=== PATIENT | female | born 1975 | race Caucasian/White ===

== ENCOUNTER 2018-08-19 12:52 | Emergency (ER) | payer MEDICAID, MEDICARE ==
[~2018-08-19] VITALS: Ht 162.6 cm; Wt 75.9 kg
[~2018-08-19 12:52] MED LIST: HYDR-3498 PO; NAPR-985 PO
[2018-08-19 12:55] VITALS: BP 128/70; PULSE 108; RESP 20; Ht 162.6 cm; Wt 75.9 kg
[2018-08-19] MEDS ORDERED: PSEU-79 PO (13:03)
[2018-08-19] MEDS ORDERED: NAPR-985 PO (13:03)
[2018-08-19] MEDS ORDERED: ACET500C5 PO (13:03)
[2018-08-19] MEDS ORDERED: MED4DP PO (13:03)
--- NOTE | 2018-08-19 13:14 | ERD ---
ER Documentation Chief Complaint Chief Complaint throat pain and cough started since Saturday HPI 43-year-old female presenting with sore throat and cough times 3 days. She states she has sore tonsils and she started sneezing with coughing. Hurts to swallow. She took ibuprofen 2 days ago but no medication today. Medical history is Pinet[place]'s disease. NKDA. Surgical history cholecystectomy and C- section with tubal ligation. Social history smokes occasionally. ROS All systems reviewed and are negative except as per history of present illness. Medications Home Meds Active Scripts Methylprednisolone* (Medrol* DOSE PACK) 4 Mg/Dose-Pack Tab.ds.pk, 4 MG PO . DIRECTED, #1 PACKET Prov:TRINIDAD LICEA PA-C 08/19/18 Acetaminophen* (Tylophen*) 500 Mg Capsule, 2 CAP PO Q8H PRN for PAIN AND OR ELEVATED TEMP, #20 CAP Prov:TRINIDAD LICEA PA-C 08/19/18 Naproxen* (Naprosyn*) 500 Mg Tablet, 500 MG PO BID PRN for PAIN AND/OR INFLAMMATION, #30 TAB Prov:TRINIDAD LICEA PA-C 08/19/18 Pseudoephedrine Hcl* (Suphedrin*) 30 Mg Tablet, 30 MG PO Q6 PRN for CONGESTION, #30 TAB Prov:TRINIDAD LICEA PA-C 08/19/18 Naproxen* (Naprosyn*) 500 Mg Tablet, 500 MG PO BID PRN for PAIN AND/OR INFLAMMATION, #20 TAB Prov:KAYLA HAMILTON DO 10/20/14 Hydrocodone Bit-Acetaminophen* ([place]*) 5-325 Mg Tab, 1 TAB PO Q6 PRN for PAIN, #20 TAB Prov:KAYLA HAMILTON DO 10/20/14 Reported Medications [None] No Conflict Check 07/27/14 Allergies Allergies: Coded Allergies: No Known Allergy (Unverified , 10/20/14) PMhx/Soc History of Surgery: Yes (CHOLECYSTECTOMY, TUBAL LIGATION) Anesthesia Reaction: No Hx Neurological Disorder: No Hx Respiratory Disorders: No Hx Cardiac Disorders: No Hx Psychiatric Problems: Yes (ANXIETY, DEPRESSION) Hx Miscellaneous Medical Probl: No (HUNT[place]S DISEASE) Hx Alcohol Use: Yes (ALCOHOL ABUSE) Hx Substance Use: No Hx Tobacco Use: No FmHx Family History: No diabetes, No coronary disease, No other Physical Exam Vitals Vital Signs Date Temp Pulse Resp B/P (MAP) Pulse Ox O2 O2 Flow FiO2 Time Delivery Rate 08/19/18 99.2 108 20 128/70 97 12:55 (89) Physical Exam GENERAL: The patient is well-appearing, well-nourished, in no acute distress HEENT: Atraumatic. Conjunctivae are pink. Pupils equal, round, and reactive to light. There is no scleral icterus. Tympanic membranes clear bilaterally. Oropharynx clear. NECK: C-spine is soft and supple. There is no meningismus. There is no cervical lymphadenopathy. CHEST: Clear to auscultation bilaterally. There are no rales, wheezes or rhonchi. HEART: Regular rate and rhythm. No murmurs, clicks, rubs or gallops. Procedures/MDM MDM: 43-year-old female presenting with sore throat. I have low suspicion for pneumonia. I have low suspicion for bacterial HEENT infection. I have low suspicion for meningitis or sepsis. I do not feel antibiotics are indicated patient is discharged with supportive medications. Patient is told symptoms change or worsen to return immediately to the ER. All questions answered at discharge Departure Diagnosis: Primary Impression: Sore throat Condition: Stable Patient Instructions: Self-Care for Sore Throats Referrals: [facility] YOU HAVE RECEIVED A MEDICAL SCREENING EXAM AND THE RESULTS INDICATE THAT YOU DO NOT HAVE A CONDITION THAT REQUIRES URGENT TREATMENT IN THE EMERGENCY DEPARTMENT. FURTHER EVALUATION AND TREATMENT OF YOUR CONDITION CAN WAIT UNTIL YOU ARE SEEN IN YOUR DOCTORS OFFICE WITHIN THE NEXT 1-2 DAYS. IT IS YOUR RESPONSIBILITY TO MAKE AN APPOINTMENT FOR FOLOW-UP CARE. IF YOU HAVE A PRIMARY DOCTOR --you should call your primary doctor and schedule an appointment IF YOU DO NOT HAVE A PRIMARY DOCTOR YOU CAN CALL OUR PHYSICIAN REFERRAL HOTLINE AT IF YOU CAN NOT AFFORD TO SEE A PHYSICIAN YOU CAN CHOSE FROM THE FOLLOWING [facility] CLINICS [facility] [address] [facility]. [facility] [address] [facility] [address] [facility] [address] [facility]. [facility] [address] [facility]. [facility] [address] Additional Instructions: FOLLOW UP WITH YOUR PRIMARY CARE PHYSICIAN TOMORROW.Return to this facility if you are not improving as expected. TRINIDAD LICEA PA-C Aug 19, 2018 13:14
== END 2018-08-19 15:38 | disposition home or self-care (01) ==
LOC: E/R 12:52
DX: J02.9 Acute pharyngitis, unspecified (principal)
CPT/HCPCS: 99283

== ENCOUNTER 2018-10-10 04:25 | Emergency (ER) | payer MEDICARE, OTHER ==
[~2018-10-10] VITALS: Ht 160 cm; Wt 73.0 kg
[~2018-10-10 04:25] MED LIST changes: +ACET500C5 PO; +MED4DP PO; +PSEU-79 PO
[2018-10-10 04:34] VITALS: Ht 160 cm; Wt 73.0 kg
[2018-10-10] MEDS ORDERED: LIDOCAINE 1%/EPI (1:100,000) (MDV) 20 ML INJ ONE (05:00)
[2018-10-10] MEDS ORDERED: LIDOCAINE 1%/EPI 30 ML INJ INJ ONE (05:00)
[2018-10-10] MEDS ORDERED: CEFAZOLIN 1 GM INJ IM ONE (05:00)
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
[2018-10-10] MEDS ORDERED: CEPH-443 PO (05:24)
[2018-10-10 06:27] VITALS: BP 113/78; PULSE 86; RESP 16
== END 2018-10-10 06:30 | disposition home or self-care (01) ==
LOC: E/R 04:25
DX: S41.111A Laceration without foreign body of right upper arm, initial encounter (principal); F10.920 Alcohol use, unspecified with intoxication, uncomplicated; R40.2142 Coma scale, eyes open, spontaneous, at arrival to emergency department; R40.2362 Coma scale, best motor response, obeys commands, at arrival to emergency department; R40.2252 Coma scale, best verbal response, oriented, at arrival to emergency department; W22.8XXA Striking against or struck by other objects, initial encounter; Y92.9 Unspecified place or not applicable
CPT/HCPCS: 12002; 73090; 96372; 99284; J0690

== ENCOUNTER 2018-10-13 21:02 | Emergency (ER) | payer MEDICARE, OTHER ==
[~2018-10-13] VITALS: Ht 160 cm; Wt 75.6 kg
[~2018-10-13 21:02] MED LIST changes: +CEPH-443 PO
[2018-10-13 21:06] VITALS: Ht 160 cm; Wt 75.6 kg
--- NOTE | 2018-10-14 00:16 | ERD ---
ER Documentation Chief Complaint Chief Complaint wound check stapled lac right forearm, repaired 3 days ago HPI 43-year-old female presents for wound check of devaughn over the right forearm for laceration that she sustained 3 days ago. The wound was repaired here in the ER 3 days ago. Denies any fevers. She only has minimal pain at the site. No redness or discharge noted from the area. She states that the wound appears to be healing well. There was some bleeding from the area noted however it has resolved.. No other modifying factors noted. No other treatments tried at home. ROS All systems reviewed and are negative except as per history of present illness. Medications Home Meds Active Scripts Cephalexin* (Keflex*) 500 Mg Capsule, 500 MG PO QID for 7 Days, CAP Prov:STEPHANIE GRAY MD 10/10/18 Methylprednisolone* (Medrol* DOSE PACK) 4 Mg/Dose-Pack Tab.ds.pk, 4 MG PO . DIRECTED, #1 PACKET Prov:TRINIDAD LICEA PA-C 08/19/18 Acetaminophen* (Tylophen*) 500 Mg Capsule, 2 CAP PO Q8H PRN for PAIN AND OR ELEVATED TEMP, #20 CAP Prov:TRINIDAD LICEA PA-C 08/19/18 Naproxen* (Naprosyn*) 500 Mg Tablet, 500 MG PO BID PRN for PAIN AND/OR INFLAMMATION, #30 TAB Prov:TRINIDAD LICEA PA-C 08/19/18 Pseudoephedrine Hcl* (Suphedrin*) 30 Mg Tablet, 30 MG PO Q6 PRN for CONGESTION, #30 TAB Prov:TRINIDAD LICEA PA-C 08/19/18 Naproxen* (Naprosyn*) 500 Mg Tablet, 500 MG PO BID PRN for PAIN AND/OR INFLAMMA TION, #20 TAB Prov:KAYLA HAMILTON DO 10/20/14 Hydrocodone Bit-Acetaminophen* ([place]*) 5-325 Mg Tab, 1 TAB PO Q6 PRN for PAIN, #20 TAB Prov:KAYLA HAMILTON DO 10/20/14 Reported Medications [None] No Conflict Check 07/27/14 Allergies Allergies: Coded Allergies: No Known Allergy (Unverified , 10/20/14) PMhx/Soc History of Surgery: Yes (CHOLECYSTECTOMY, TUBAL LIGATION) Anesthesia Reaction: No Hx Neurological Disorder: No Hx Respiratory Disorders: No Hx Cardiac Disorders: No Hx Psychiatric Problems: Yes (ANXIETY, DEPRESSION) Hx Miscellaneous Medical Probl: No (HUNT[place]S DISEASE) Hx Alcohol Use: Yes (ALCOHOL ABUSE) Hx Substance Use: No Hx Tobacco Use: No Smoking Status: Never smoker Physical Exam Vitals Vital Signs Date Temp Pulse Resp B/P (MAP) Pulse Ox O2 O2 Flow FiO2 Time Delivery Rate 10/13/18 98.9 95 18 159/83 100 21:06 (108) Physical Exam Const: No acute distress Resp: Clear to auscultation bilaterally Cardio: Regular rate and rhythm, no murmurs, peripheral pulses intact Skin: Right forearm devaughn noted, clean dry intact, there is no erythema or increased warmth noted. Back: No midline or flank tenderness Ext: No cyanosis, or edema Neur: Awake and alert, right arm and right hand sensation intact Psych: Normal Mood and Affect Procedures/MDM Medical Decision Making: Patient presents for follow-up on a laceration repair done on the right forearm. The devaughn are noted to be clean dry and intact. There is no signs of infection on examination. Right forearm compartments are soft. Patient appeared well on physical exam. Low suspicion for cellulitis, compartment syndrome, dehiscence Wound care instructions given. Patient advised to return to the ER in 4 to 7 days for staple removal. Patient advised to follow up with PCP in 1-2 days. Patient advised to return to ED for new or worsening symptoms. Patient stable on discharge from the ED. Disclaimer: Inadvertent spelling and grammatical errors are likely due to EHR/dictation software use and do not reflect on the overall quality of patient care. Also, please note that the electronic time recorded on this note does not necessarily reflect the actual time of the patient encounter. Departure Diagnosis: Primary Impression: Encounter for wound re-check Condition: Fair Patient Instructions: Wound Care, Wound Check, Lac F/U (No Infection) Referrals: COMMUNITY CLINICS YOU HAVE RECEIVED A MEDICAL SCREENING EXAM AND THE RESULTS INDICATE THAT YOU DO NOT HAVE A CONDITION THAT REQUIRES URGENT TREATMENT IN THE EMERGENCY DEPARTMENT. FURTHER EVALUATION AND TREATMENT OF YOUR CONDITION CAN WAIT UNTIL YOU ARE SEEN IN YOUR DOCTORS OFFICE WITHIN THE NEXT 1-2 DAYS. IT IS YOUR RESPONSIBILITY TO MAKE AN APPOINTMENT FOR FOLOW-UP CARE. IF YOU HAVE A PRIMARY DOCTOR --you should call your primary doctor and schedule an appointment IF YOU DO NOT HAVE A PRIMARY DOCTOR YOU CAN CALL OUR PHYSICIAN REFERRAL HOTLINE AT IF YOU CAN NOT AFFORD TO SEE A PHYSICIAN YOU CAN CHOSE FROM THE FOLLOWING [facility] CLINICS [facility] [address] [facility] [address] [facility] [address] [facility] [address] [facility] [address] [facility]. [facility] [address] [facility] [facility]. [address] Additional Instructions: Call your primary care doctor TOMORROW for an appointment during the next 1-2 days.See the doctor sooner or return here if your condition worsens before your appointment time. Return to ER in 4-7 days for staple removal MARCELLA HALL DO Oct 14, 2018 00:16
[2018-10-14 00:40] VITALS: BP 122/72; PULSE 85; RESP 18
== END 2018-10-14 00:41 | disposition home or self-care (01) ==
LOC: FTE 21:02
DX: Z48.00 Encounter for change or removal of nonsurgical wound dressing (principal)
CPT/HCPCS: 99281

== ENCOUNTER 2018-10-20 17:02 | Emergency (ER) | payer MEDICARE, OTHER ==
[~2018-10-20] VITALS: Ht 160 cm; Wt 75.1 kg
[2018-10-20 17:31] VITALS: BP 142/68; PULSE 108; RESP 18; Ht 160 cm; Wt 75.1 kg
== END 2018-10-20 23:50 | disposition left against medical advice (07) ==
LOC: FTE 17:02
DX: Z53.21 Procedure and treatment not carried out due to patient leaving prior to being seen by health care provider (principal)

== ENCOUNTER 2018-11-30 23:24 | Emergency (ER) | payer MEDICARE, OTHER ==
[~2018-11-30] VITALS: Ht 160 cm; Wt 71.3 kg
[2018-11-30 23:26] VITALS: Ht 160 cm; Wt 71.3 kg
[2018-12-01] MEDS ORDERED: LORAZEPAM 2 MG INJ IM ONE
--- NOTE | 2018-12-01 00:17 | ERD ---
ER Documentation Chief Complaint Chief Complaint bib ra 881 c/o anxiety x 1 hour. hx of anxiety HPI 43-year-old female history of anxiety disorder secondary to concerns about her diagnosis of [place]'s disease. Patient states that she normally takes anxiety medication. She is having severe anxiety, tearfulness and depression. She describes a depressed mood with passive suicidal thoughts with no active plan. She denies any fevers chills headache chest pain or shortness of breath. Patient is feeling extremely anxious and having palpitations. Symptoms started just prior to arrival. ROS All systems reviewed and are negative except as per history of present illness. Medications Home Meds Active Scripts Cephalexin* (Keflex*) 500 Mg Capsule, 500 MG PO QID for 7 Days, CAP Prov:STEPHANIE GRAY MD 10/10/18 Methylprednisolone* (Medrol* DOSE PACK) 4 Mg/Dose-Pack Tab.ds.pk, 4 MG PO . DIRECTED, #1 PACKET Prov:TRINIDAD LICEA PA-C 08/19/18 Acetaminophen* (Tylophen*) 500 Mg Capsule, 2 CAP PO Q8H PRN for PAIN AND OR ELEVATED TEMP, #20 CAP Prov:TRINIDAD LICEA PA-C 08/19/18 Naproxen* (Naprosyn*) 500 Mg Tablet, 500 MG PO BID PRN for PAIN AND/OR INFLAMMATION, #30 TAB Prov:TRINIDAD LICEA PA-C 08/19/18 Pseudoephedrine Hcl* (Suphedrin*) 30 Mg Tablet, 30 MG PO Q6 PRN for CONGESTION, #30 TAB Prov:TRINIDAD LICEA PA-C 08/19/18 Naproxen* (Naprosyn*) 500 Mg Tablet, 500 MG PO BID PRN for PAIN AND/OR INFLAMMATION, #20 TAB Prov:KAYLA HAMILTON DO 10/20/14 Hydrocodone Bit-Acetaminophen* ([place]*) 5-325 Mg Tab, 1 TAB PO Q6 PRN for PAIN, #20 TAB Prov:KAYLA HAMILTON DO 10/20/14 Reported Medications [None] No Conflict Check 07/27/14 Allergies Allergies: Coded Allergies: No Known Allergy (Unverified , 10/20/14) PMhx/Soc History of Surgery: Yes (CHOLECYSTECTOMY, TUBAL LIGATION) Anesthesia Reaction: No Hx Neurological Disorder: No Hx Respiratory Disorders: No Hx Cardiac Disorders: No Hx Psychiatric Problems: Yes (ANXIETY, DEPRESSION) Hx Miscellaneous Medical Probl: No (HUNT[place]S DISEASE) Hx Alcohol Use: Yes (ALCOHOL ABUSE) Hx Substance Use: No Hx Tobacco Use: No FmHx Family History: No diabetes Physical Exam Vitals Vital Signs Date Temp Pulse Resp B/P (MAP) Pulse Ox O2 O2 Flow FiO2 Time Delivery Rate 11/30/18 97.7 130 20 149/69 99 23:26 (95) Physical Exam General: Tearful, labile mood Head: Normocephalic, atraumatic. Eyes: EOM intact ENT: Moist mucous membranes Neck: Full ROM Respiratory: No respiratory distress Cardiovascular: Well perfused distally Abdominal: Nondistended : Deferred MSK: No edema, no unilateral swelling, 5/5 strength Neurologic: Alert and oriented, moving all extremities, normal speech, steady gait Skin: No rash Psych: Tearful, labile, suicidal ideation, no plan Result Diagram: 12/01/18 0016 12/01/18 0016 Results 24 hrs Laboratory Tests Test 12/01/18 00:05 12/01/18 00:16 12/01/18 00:18 Urine Opiates Screen Negative Urine Barbiturates Negative Urine Amphetamines Screen POSITIVE Urine Benzodiazepines Screen Negative Urine Cocaine Screen Negative Urine Cannabinoids Negative White Blood Count 6.6 10^3/ul Red Blood Count 4.24 10^6/ul Hemoglobin 8.2 g/dl Hematocrit 29.7 % Mean Corpuscular Volume 70.0 fl Mean Corpuscular Hemoglobin 19.3 pg Mean Corpuscular 27.6 g/dl Hemoglobin Concent Red Cell Distribution Width 18.1 % Platelet Count 495 10^3/UL Mean Platelet Volume 8.6 fl Immature Granulocytes % 0.500 % Neutrophils % 63.6 % Lymphocytes % 25.6 % Monocytes % 9.0 % Eosinophils % 0.8 % Basophils % 0.5 % Nucleated Red Blood Cells % 0.0 /100WBC Immature Granulocytes # 0.030 10^3/ul Neutrophils # 4.2 10^3/ul Lymphocytes # 1.7 10^3/ul Monocytes # 0.6 10^3/ul Eosinophils # 0.1 10^3/ul Basophils # 0.0 10^3/ul Nucleated Red Blood Cells # 0.0 10^3/ul Sodium Level 140 mmol/L Potassium Level 3.4 mmol/L Chloride Level 102 mmol/L Carbon Dioxide Level 24 mmol/L Anion Gap 14 Blood Urea Nitrogen 6 mg/dl Creatinine 0.99 mg/dl Est Glomerular Filtrat Rate mL/min > 60 mL/min Glucose Level 132 mg/dl Calcium Level 9.9 mg/dl Total Bilirubin 0.9 mg/dl Direct Bilirubin 0.00 mg/dl Indirect Bilirubin 0.9 mg/dl Aspartate Amino Transf (AST/SGOT) 38 IU/L Alanine 39 IU/L Aminotransferase (ALT/SGPT) Alkaline Phosphatase 90 IU/L Total Protein 8.8 g/dl Albumin 4.6 g/dl Globulin 4.20 g/dl Albumin/Globulin Ratio 1.09 Ethyl Alcohol Level < 10.0 mg/dl POC Beta HCG, Qualitative NEGATIVE Current Medications Medications Dose Sig/Damaris Start Time Status Last (Trade) Ordered Route PRN Stop Time Admin Dose Reason Admin Lorazepam 1 mg ONCE ONCE 12/01/18 DC 12/01/18 (Ativan) IM 00:00 00:17 12/01/18 00:01 Procedures/MDM EKG/DIAGNOSTIC IMAGING: [None Required] LAB INTERPRETATION: [No acute process] MEDICAL DECISION MAKING: The patient's presentation is consistent with underlying depression and anxiety with exacerbation and passive suicidal ideation I have a much lower clinical concern for delirium or acute organic pathology such as toxicologic, metabolic, ischemic, intracranial hemorrhage, infectious process. However, we must rule this out prior to relying a diagnosis of underlying psychiatric illness. The patient's workup will include medical screening examination and appropriate laboratory testing. If the patient's medical examination does not reveal acute organic pathology the patient will be medically cleared for psychiatric evaluation. ER COURSE: * IM Ativan provided * The patient's evaluation does not suggest an acute organic pathology. At this time I believe the patient's presentation is very consistent with underlying psychiatric illness. The patient is medically cleared for psychiatric evaluation. CONSULTATION: Psychiatric consultation: Telemetry medicine psychiatry has been consulted on this case to evaluate the patient for possible acute psychiatric illness that would require inpatient hospitalization. DISPOSITION PLAN: Psychiatrist recommends inpatient treatment for this individual. The patient is pending disposition. Ativan provided. Daily Lexapro ordered. Departure Diagnosis: Primary Impression: Anxiety attack Additional Impression: Depression with suicidal ideation Condition: STEPHANIE Jones MD Dec 01, 2018 00:17
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
[2018-12-01 06:05] VITALS: BP 101/81; PULSE 80; RESP 18
[2018-12-01] MEDS ORDERED: ESCITALOPRAM 10 MG TAB PO SCH (09:00)
== END 2018-12-01 06:07 ==
LOC: E/R 23:24
DX: F41.9 Anxiety disorder, unspecified (principal); F32.9 Major depressive disorder, single episode, unspecified
CPT/HCPCS: 80053; 80307; 81025; 85025; J2060; 36415; 96372